=== PATIENT | male | born 1995 | race Caucasian/White ===

== ENCOUNTER 2017-12-02 12:15 | Emergency (ER) | payer SELFPAY ==
[~2017-12-02] VITALS: Ht 185.4 cm; Wt 70.5 kg
[2017-12-02 13:32] VITALS: BP 126/72
[2017-12-02 13:46] LABS: BASOPHILS % (AUTO) 1.4 % (0.0-2.0); EOSINOPHILS % (AUTO) 1.2 % (1.0-6.0); HEMATOCRIT 48.5 % (41-53); HEMOGLOBIN 16.6 g/dL (13.5-17.5); LYMPHOCYTES # (AUTO) 1.8 K/uL (1.0-4.8); LYMPHOCYTES % (AUTO) 41.7 % (22.0-44.0); MEAN CORPUSCULAR HEMOGLOBIN 30.5 pg (26.0-34.0); MEAN CORPUSCULAR HGB CONC 34.2 G/dL (31.0-37.0); MEAN CORPUSCULAR VOLUME 89 fL (80-100); MONOCYTES # (AUTO) 0.7 K/uL (0.1-1.0); MONOCYTES % (AUTO) 15.4 % (2.0-9.0); NEUTROPHILS # (AUTO) 1.8 K/uL (1.8-7.7); NEUTROPHILS % (AUTO) 40.3 % (40.0-70.0); PLATELET COUNT (AUTO) 206 K/uL (150-450); RED BLOOD CELL COUNT(AUTO) 5.44 MIL/uL (4.50-5.90); RED CELL DISTRIBUTION WIDTH 13.9 % (11.5-14.5)
[2017-12-02 13:52] LABS: ANION GAP 9 mmol/L (8-16); CALCIUM, TOTAL 9.3 mg/dL (8.8-10.5); CARBON DIOXIDE 27 mmol/L (22-29); CHLORIDE 105 mmol/L (98-107); GLOMERULAR FILTR. RATE CALC > 60 mL/min (>60); GLUCOSE,RANDOM 90 mg/dL (70-110); POTASSIUM 4.7 mmol/L (3.5-5.1); SODIUM SERUM 141 mmol/L (136-145); UREA NITROGEN, BLOOD 11 mg/dL (7-18)
[2017-12-02 13:56] LABS: AMPHET/METH SCREEN,URINE NEGATIVE (NEGATIVE); BARBITURATE SCREEN, URINE NEGATIVE (NEGATIVE); BENZODIAZEPINES SCREEN,URINE POSITIVE (NEGATIVE); CANNABINOID SCREEN,URINE POSITIVE (NEGATIVE); COCAINE SCREEN,URINE NEGATIVE (NEGATIVE); METHADONE SCREEN, URINE NEGATIVE (NEGATIVE); OPIATE SCREEN,URINE NEGATIVE (NEGATIVE)
[2017-12-02 13:57] LABS: ALANINE AMINOTRANSFERASE 27 U/L (12-78); ALBUMIN 4.3 g/dL (3.4-5.0); ALKALINE PHOSPHATASE 72 U/L (46-116); ASPARTATE AMINOTRANSFERASE 37 U/L (15-37); TOTAL PROTEIN, SERUM 7.7 g/dL (6.4-8.2)
[2017-12-02 13:59] LABS: PHENCYCLIDINE SCREEN,URINE NEGATIVE (NEGATIVE)
== END 2017-12-02 15:26 | disposition home or self-care (01) ==
LOC: EMS 12:16
DX: F32.9 Major depressive disorder, single episode, unspecified (principal); F17.210 Nicotine dependence, cigarettes, uncomplicated; F12.90 Cannabis use, unspecified, uncomplicated; Z90.49 Acquired absence of other specified parts of digestive tract
CPT/HCPCS: 36415; 80053; 80307; 85025; 99285; 99406; G0480

== ENCOUNTER 2023-05-13 11:50 | Emergency (ER) | payer MEDICAID ==
[~2023-05-13] VITALS: Ht 183.5 cm; Wt 65.9 kg
[2023-05-13 11:53] VITALS: TEMP 98.3
[2023-05-13] MEDS ORDERED: LORA-1001 PO (11:56)
[2023-05-13] MEDS ORDERED: PANT-31 PO ×2 (11:56→16:59)
[2023-05-13] MEDS ORDERED: CHLO5CAP4 PO (11:56)
[2023-05-13] MEDS: SODIUM CHLORIDE 0.9% 1,000 ML IV ONE (12:26)
[2023-05-13] MEDS: PANTOPRAZOLE SODIUM 40 MG/VIAL IVP ONE (12:27)
[2023-05-13 12:40] LABS: BASOPHILS % (AUTO) 2.7 % (0.0-2.0); EOSINOPHILS % (AUTO) 2.4 % (1.0-6.0); HEMATOCRIT 27.1 % (41-53); HEMOGLOBIN 9.1 g/dL (13.5-17.5); LYMPHOCYTES # (AUTO) 1.6 K/uL (1.0-4.8); LYMPHOCYTES % (AUTO) 32.8 % (22.0-44.0); MEAN CORPUSCULAR HEMOGLOBIN 34.8 pg (26.0-34.0); MEAN CORPUSCULAR HGB CONC 33.7 G/dL (31.0-37.0); MEAN CORPUSCULAR VOLUME 103 fL (80-100); MONOCYTES # (AUTO) 0.9 K/uL (0.1-1.0); MONOCYTES % (AUTO) 18.4 % (2.0-9.0); NEUTROPHILS # (AUTO) 2.1 K/uL (1.8-7.7); NEUTROPHILS % (AUTO) 43.7 % (40.0-70.0); PLATELET COUNT (AUTO) 145 K/uL (150-450); RED BLOOD CELL COUNT(AUTO) 2.62 MIL/uL (4.50-5.90); RED CELL DISTRIBUTION WIDTH 14.6 % (11.5-14.5); WHITE BLOOD COUNT (AUTO) 4.9 K/uL (4.5-11.0)
[2023-05-13 13:05] LABS: ANION GAP 11 mmol/L (8-16); CALCIUM, TOTAL 8.9 mg/dL (8.8-10.5); CARBON DIOXIDE 27 mmol/L (22-29); CHLORIDE 104 mmol/L (98-107); CREATININE 0.91 mg/dL (0.60-1.30); GLOMERULAR FILTR. RATE CALC > 60 mL/min (>60); GLUCOSE,RANDOM 95 mg/dL (70-110); POTASSIUM 3.3 mmol/L (3.5-5.1); SODIUM SERUM 142 mmol/L (136-145); UREA NITROGEN, BLOOD 8 mg/dL (7-18)
[2023-05-13 13:08] LABS: ALANINE AMINOTRANSFERASE 69 U/L (12-78); ALKALINE PHOSPHATASE 194 U/L (46-116); ASPARTATE AMINOTRANSFERASE 199 U/L (15-37); BILIRUBIN,TOTAL 1.8 mg/dL (0.1-1.0); TOTAL PROTEIN, SERUM 6.4 g/dL (6.4-8.2)
[2023-05-13 13:15] LABS: RBC MORPHOLOGY COMMENT ABNORMAL RBC MORPH
[2023-05-13] MEDS: ChlordiazePOXIDE HCL 10 MG CAPSULE PO ONE (13:20)
[2023-05-13 13:21] LABS: ALCOHOL, BLOOD (SERUM) 121 mg/dL (0-10)
[2023-05-13] MEDS: LORazepam 1 MG TABLET PO ONE (16:28)
[2023-05-13 16:30] VITALS: BP 121/73; PULSE 85; RESP 20
[2023-05-13] MEDS ORDERED: CHLO10CA7 PO (16:59)
== END 2023-05-13 17:28 | disposition home or self-care (01) ==
LOC: EDUNIT# 11:50 → EMS 12:17
DX: F10.129 Alcohol abuse with intoxication, unspecified (principal); K29.70 Gastritis, unspecified, without bleeding; B19.20 Unspecified viral hepatitis C without hepatic coma; F17.210 Nicotine dependence, cigarettes, uncomplicated; F12.90 Cannabis use, unspecified, uncomplicated
CPT/HCPCS: 99283; 96374; 96361; 80053; 85025; 36415; G0480; C9113; J7030

== ENCOUNTER 2023-05-20 19:25 | Emergency (ER) | payer MEDICAID ==
[~2023-05-20] VITALS: Ht 182.9 cm; Wt 63.6 kg
[~2023-05-20 19:25] MED LIST: CHLO25CA5 PO; FOLI-130 PO; FURO20TA4 PO; MULT-685 PO; PANT40TA54 PO; SPIR-37 PO; TRAM-559 PO
[2023-05-20 19:36] VITALS: TEMP 98.4
[2023-05-20] MEDS: KETOROLAC TROMETHAMINE 60 MG/2 ML VIAL IM ONE (19:45)
[2023-05-20 22:41] VITALS: BP 121/78; PULSE 64; RESP 18
== END 2023-05-20 23:04 | disposition home or self-care (01) ==
LOC: EMS 19:26
DX: S80.02XA Contusion of left knee, initial encounter (principal); S80.11XA Contusion of right lower leg, initial encounter; F32.A Depression, unspecified; F20.9 Schizophrenia, unspecified; F17.210 Nicotine dependence, cigarettes, uncomplicated; F12.90 Cannabis use, unspecified, uncomplicated; E73.9 Lactose intolerance, unspecified; F10.90 Alcohol use, unspecified, uncomplicated; Z90.49 Acquired absence of other specified parts of digestive tract; Z98.890 Other specified postprocedural states; W19.XXXA Unspecified fall, initial encounter; Y93.89 Activity, other specified; Y92.89 Other specified places as the place of occurrence of the external cause; Y99.8 Other external cause status
CPT/HCPCS: 99283; 73562; 73590; 96372; J1885

== ENCOUNTER 2023-05-23 02:47 | Inpatient (IN) | payer MEDICAID ==
[~2023-05-23] VITALS: Ht 182.9 cm; Wt 68.2 kg
[2023-05-23 03:26] LABS: EOSINOPHILS % (AUTO) 0.1 % (1.0-6.0); HEMATOCRIT 32.6 % (41-53); LYMPHOCYTES # (AUTO) 0.7 K/uL (1.0-4.8); MEAN CORPUSCULAR HEMOGLOBIN 34.4 pg (26.0-34.0); MEAN CORPUSCULAR HGB CONC 33.8 G/dL (31.0-37.0); MEAN CORPUSCULAR VOLUME 102 fL (80-100); MONOCYTES # (AUTO) 0.3 K/uL (0.1-1.0); MONOCYTES % (AUTO) 6.1 % (2.0-9.0); NEUTROPHILS # (AUTO) 3.4 K/uL (1.8-7.7); NEUTROPHILS % (AUTO) 76.8 % (40.0-70.0); PLATELET COUNT (AUTO) 130 K/uL (150-450); RED CELL DISTRIBUTION WIDTH 14.4 % (11.5-14.5); WHITE BLOOD COUNT (AUTO) 4.4 K/uL (4.5-11.0)
[2023-05-23 03:34] LABS: ANION GAP 13 mmol/L (8-16); CALCIUM, TOTAL 9.5 mg/dL (8.8-10.5); CARBON DIOXIDE 24 mmol/L (22-29); CHLORIDE 102 mmol/L (98-107); GLOMERULAR FILTR. RATE CALC > 60 mL/min (>60); GLUCOSE,RANDOM 134 mg/dL (70-110); SODIUM SERUM 139 mmol/L (136-145); UREA NITROGEN, BLOOD 12 mg/dL (7-18)
[2023-05-23 03:40] LABS: ALANINE AMINOTRANSFERASE 52 U/L (12-78); ALBUMIN 3.7 g/dL (3.4-5.0); ALKALINE PHOSPHATASE 142 U/L (46-116); ASPARTATE AMINOTRANSFERASE 105 U/L (15-37); BILIRUBIN,TOTAL 2.1 mg/dL (0.1-1.0); LIPASE 97 U/L (16-77); TOTAL PROTEIN, SERUM 7.9 g/dL (6.4-8.2)
[2023-05-23] MEDS: ONDANSETRON HCL 4 MG/2 ML VIAL IVP ONE (03:48)
[2023-05-23 04:01] LABS: ALCOHOL, BLOOD (SERUM) < 3 mg/dL (0-10)
[2023-05-23] MEDS: SODIUM CHLORIDE 0.9% 1,000 ML IV ONE (05:45)
[2023-05-23] MEDS: LORazepam 2 MG/ML VIAL IVP ONE (05:45)
[2023-05-23] MEDS: PANTOPRAZOLE SODIUM 40 MG/VIAL IVP ONE (05:46)
[2023-05-23] MEDS: METOCLOPRAMIDE HCL 5 MG/ML 2 ML VIAL IVP ONE (05:46)
[2023-05-23 10:35] VITALS: BP 125/91; PULSE 84; RESP 20; TEMP 98.1
[2023-05-23] MEDS: ONDANSETRON HCL 4 MG/2 ML VIAL IVP PRN ×2 (12:47→19:58)
[2023-05-23] MEDS: INFLUENZA VIRUS VACCINE QVS 2023-24 (6MO+)/PF 60 MCG/0.5 ML SYRINGE IM. ONE (12:56)
[2023-05-23] MEDS: MAGNESIUM SULFATE 2 GM, MVI, ADULT NO.1 WITH VIT K 10 ML, THIAMINE 100 MG, FOLIC ACID 1... IV ONE (13:35)
[2023-05-23] MEDS ORDERED: BISACODYL 10 MG RECTAL RECTAL SUPPOSITORY PR PRN (15:15)
[2023-05-23] MEDS ORDERED: ZOLPIDEM TARTRATE 5 MG TABLET PO PRN (15:15)
[2023-05-23] MEDS ORDERED: MAGNESIUM HYDROXIDE SUSPENSION 30 ML UDCUP PO PRN (15:15)
[2023-05-23] MEDS: MORPHINE SULFATE 2 MG/ML SYRINGE IVP PRN (15:31)
[2023-05-23] MEDS: HEPARIN SODIUM,PORCINE 5,000 UNITS/ML VIAL SQ SCH (15:38)
[2023-05-23 15:58] VITALS: BP 130/80; PULSE 80; RESP 20; TEMP 98.9
[2023-05-23 19:45] VITALS: BP 127/84; PULSE 81; RESP 20; TEMP 98.1
[2023-05-23] MEDS: PANTOPRAZOLE SODIUM 40 MG/VIAL IVP SCH (19:58)
[2023-05-23] MEDS: ChlordiazePOXIDE HCL 25 MG CAPSULE PO PRN (19:58)
[2023-05-23] MEDS: DOCUSATE SODIUM 100 MG CAPSULE PO SCH (20:01)
[2023-05-23] MEDS: ZOLPIDEM TARTRATE 5 MG TABLET PO PRN (21:30)
[2023-05-24] MEDS: ACETAMINOPHEN 325 MG TABLET PO PRN (04:33)
[2023-05-24 04:46] VITALS: BP 115/71; PULSE 83; RESP 20; TEMP 98.7
[2023-05-24 06:53] LABS: EOSINOPHILS % (AUTO) 0.3 % (1.0-6.0); HEMATOCRIT 27.6 % (41-53); HEMOGLOBIN 9.5 g/dL (13.5-17.5); LYMPHOCYTES # (AUTO) 1.6 K/uL (1.0-4.8); LYMPHOCYTES % (AUTO) 28.5 % (22.0-44.0); MEAN CORPUSCULAR HEMOGLOBIN 34.9 pg (26.0-34.0); MEAN CORPUSCULAR HGB CONC 34.5 G/dL (31.0-37.0); MEAN CORPUSCULAR VOLUME 101 fL (80-100); MONOCYTES # (AUTO) 0.7 K/uL (0.1-1.0); MONOCYTES % (AUTO) 12.1 % (2.0-9.0); NEUTROPHILS # (AUTO) 3.2 K/uL (1.8-7.7); NEUTROPHILS % (AUTO) 58.1 % (40.0-70.0); PLATELET COUNT (AUTO) 133 K/uL (150-450); RED BLOOD CELL COUNT(AUTO) 2.73 MIL/uL (4.50-5.90); RED CELL DISTRIBUTION WIDTH 14.5 % (11.5-14.5); WHITE BLOOD COUNT (AUTO) 5.6 K/uL (4.5-11.0)
[2023-05-24] MEDS ORDERED: ChlordiazePOXIDE HCL 25 MG CAPSULE PO PRN (07:00)
[2023-05-24 07:10] LABS: ANION GAP 9 mmol/L (8-16); CALCIUM, TOTAL 8.6 mg/dL (8.8-10.5); CARBON DIOXIDE 25 mmol/L (22-29); CHLORIDE 105 mmol/L (98-107); CREATININE 0.97 mg/dL (0.60-1.30); GLOMERULAR FILTR. RATE CALC > 60 mL/min (>60); GLUCOSE,RANDOM 103 mg/dL (70-110); POTASSIUM 3.3 mmol/L (3.5-5.1); SODIUM SERUM 139 mmol/L (136-145); UREA NITROGEN, BLOOD 13 mg/dL (7-18)
[2023-05-24 08:06] LABS: RBC MORPHOLOGY COMMENT ABNORMAL RBC MORPH
[2023-05-24 08:19] VITALS: BP 114/49; PULSE 68; RESP 16; TEMP 98.1
[2023-05-24] MEDS ORDERED: ChlordiazePOXIDE HCL 25 MG CAPSULE PO SCH (09:00)
[2023-05-24] MEDS ORDERED: POTASSIUM CHLORIDE 20 MEQ ER TABLET PO PRN (10:15)
[2023-05-24] MEDS ORDERED: MULTIVITAMINS WITH MINERALS, THERAPEUTIC TABLET PO SCH (10:15)
[2023-05-24] MEDS ORDERED: POTASSIUM CHL 10 MEQ/WATER 50 ML IV PRN (10:15)
[2023-05-26] MEDS ORDERED: ChlordiazePOXIDE HCL 10 MG CAPSULE PO PRN (07:00)
[2023-05-26] MEDS ORDERED: ChlordiazePOXIDE HCL 10 MG CAPSULE PO SCH (09:00)
[2023-05-27] MEDS ORDERED: ChlordiazePOXIDE HCL 10 MG CAPSULE PO PRN (07:00)
== END 2023-05-24 14:13 | disposition left against medical advice (07) | DRG 425 ==
LOC: EMS 02:48 → 6N 07:02
PROVIDERS: ADMIT Hospitalist; ATTEND Hospitalist
DX: E87.6 Hypokalemia (principal); D61.818 Other pancytopenia; I85.00 Esophageal varices without bleeding; E44.0 Moderate protein-calorie malnutrition; I85.10 Secondary esophageal varices without bleeding; F13.20 Sedative, hypnotic or anxiolytic dependence, uncomplicated; F33.2 Major depressive disorder, recurrent severe without psychotic features; R45.851 Suicidal ideations; R10.9 Unspecified abdominal pain; K70.30 Alcoholic cirrhosis of liver without ascites; F10.10 Alcohol abuse, uncomplicated; Z53.21 Procedure and treatment not carried out due to patient leaving prior to being seen by health care provider; K21.9 Gastro-esophageal reflux disease without esophagitis; E73.9 Lactose intolerance, unspecified; B19.20 Unspecified viral hepatitis C without hepatic coma; Z90.49 Acquired absence of other specified parts of digestive tract; Z87.891 Personal history of nicotine dependence; D53.9 Nutritional anemia, unspecified
CPT/HCPCS: 80048; 80053; 82140; 83690; 85025; 87081; 99285; C9113; G0480; J1644; J2060; J2270; J2405; J2765; J3411; J3475; J3490; J7030